=== PATIENT | female | born 1955 | race Caucasian/White ===

== ENCOUNTER → 2016-08-09 | Outpatient (CLI) | payer BC ==
--- NOTE | 2016-08-10 09:35 | MM ---
Reason for exam: screening (asymptomatic). Last mammogram was performed 1 year ago. History: Patient is postmenopausal. Family history of breast cancer in maternal grandmother at age 50. Benign left mammotome panel of the left breast, July 11, 2012. Benign ultrasound-guided cyst aspiration, February 19, 1999. Stereotactic core biopsy, February 19, 1999. Benign stereotactic core biopsy of the right breast, June 05, 1998. Cyst aspiration of the right breast. Core biopsy of the right breast. Took hormonal contraceptives for 2 years. Taking estrogen for 1 year beginning at age 54. Taking progesterone for 1 year beginning at age 54. Physical Findings: A clinical breast exam by your physician is recommended on an annual basis and results should be correlated with mammographic findings. MG Screening Mammo w CAD Bilateral CC and MLO view(s) were taken. Prior study comparison: July 29, 2015, bilateral MG screening mammo w CAD. July 23, 2014, bilateral MG diagnostic mammo w CAD OLIVIA. July 18, 2013, CAD bilateral diagnostic mammogram. The breast tissue is heterogeneously dense. This may lower the sensitivity of mammography. Finding: There are typically benign round, regional, grouped/clustered calcifications in both breasts. Previous mammotome biopsy in the right and left breast. There is a chronic nodularity in the right breast. There is no discrete abnormality. Increase in number of calcifications since July 29, 2015, July 23, 2014, and July 18, 2013. ASSESSMENT: Benign, BI-RAD 2 RECOMMENDATION: Routine screening mammogram of both breasts in 1 year.
== END | disposition home or self-care (01) ==
LOC: RADMAMWWP 07:34
PROVIDERS: ATTEND Surgery
DX: Z12.31 Encounter for screening mammogram for malignant neoplasm of breast (principal)

== ENCOUNTER → 2016-09-13 | Outpatient (CLI) | payer BC ==
--- NOTE | 2016-09-13 07:57 | US ---
EXAMINATION TYPE: US abdomen complete DATE OF EXAM: 09/13/2016 7:19 AM COMPARISON: NONE CLINICAL HISTORY: R14.0 Abdominal distention,R10.84 Abd Pain. Family h/o ovarian CA, mother EXAM MEASUREMENTS: Liver Length: 16.5 cm Gallbladder Wall: 0.2 cm CBD: 0.5 cm Spleen: 8.6 cm Right Kidney: 9.3 x 4.0 x 4.3 cm Left Kidney: 9.1 x 4.8 x 5.1 cm Pancreas: limited views appear wnl Liver: wnl Gallbladder: wnl Evidence for sonographic Arevalo's sign: no CBD: wnl Spleen: wnl Right Kidney: wnl Left Kidney: wnl Upper IVC: wnl Abd Aorta: wnl The liver is homogenous. The intrahepatic portion of the IVC and proximal abdominal aorta are within normal limits. There is no evidence of cholelithiasis. Common bile duct is unremarkable. The visu alized portions of the pancreas are homogenous. The spleen is unremarkable. Kidneys are symmetric a nd free of hydronephrosis. No renal lesions are seen. IMPRESSION: No significant abnormality.
--- NOTE | 2016-09-13 08:00 | US ---
EXAMINATION TYPE: US transvaginal DATE OF EXAM: 09/13/2016 7:30 AM COMPARISON: NONE CLINICAL HISTORY: R14.0 Abdominal distention,R10.2 Pelvic pain. mother had ovarian CA TECHNIQUE: TV Date of LMP: 15+ years ago EXAM MEASUREMENTS: Uterus: 6.9 x 3.1 x 2.2 cm Endometrial Stripe: 0.2 cm Right Ovary: 1.5 x 1.1 x 1.2 cm Left Ovary: 1.4 x 1.4 x 1.3 cm 1. Uterus: Anteverted wnl 2. Endometrium: wnl 3. Right Ovary: atrophic, wnl 4. Left Ovary: atrophic, wnl 5. Bilateral Adnexa: wnl 6. Posterior cul-de-sac: wnl IMPRESSION: No distinct abnormality appreciated.
== END | disposition home or self-care (01) ==
LOC: RADUSWWP 06:50
PROVIDERS: ATTEND Family Medicine
DX: R10.2 Pelvic and perineal pain (principal); R10.84 Generalized abdominal pain; R14.0 Abdominal distension (gaseous); Z80.41 Family history of malignant neoplasm of ovary
CPT/HCPCS: 76700; 76830

== ENCOUNTER → 2017-09-19 | Outpatient (CLI) | payer BC ==
--- NOTE | 2017-09-20 09:06 | MM ---
Reason for exam: screening (asymptomatic). Last mammogram was performed 1 year and 1 month ago. History: Patient is postmenopausal, has history of colon cancer at age 60, and history of other cancer. Family history of breast cancer in maternal grandmother at age 50. Benign left mammotome panel of the left breast, July 11, 2012. Benign ultrasound-guided cyst aspiration, February 19, 1999. Stereotactic core biopsy, February 19, 1999. Benign stereotactic core biopsy of the right breast, June 05, 1998. Cyst aspiration of the right breast. Core biopsy of the right breast. Took hormonal contraceptives for 2 years. Took estrogen for 1 year beginning at age 54. Took progesterone for 1 year beginning at age 54. Physical Findings: A clinical breast exam by your physician is recommended on an annual basis and results should be correlated with mammographic findings. MG 3D Screening Mammo W/Cad Bilateral CC and MLO view(s) were taken. Prior study comparison: August 09, 2016, bilateral MG screening mammo w CAD. July 29, 2015, bilateral MG screening mammo w CAD. The breast tissue is heterogeneously dense. This may lower the sensitivity of mammography. Small spiculated nodule upper outer right breast 9.5cm from nipple. ASSESSMENT: Incomplete: need additional imaging evaluation, BI-RAD 0 RECOMMENDATION: Special view mammogram and ultrasound of the right breast. [facility] will attempt to contact patient to return for supplemental views and ultrasound.
== END | disposition home or self-care (01) ==
LOC: RADMAMWWP 07:04
PROVIDERS: ATTEND Family Medicine
DX: Z12.31 Encounter for screening mammogram for malignant neoplasm of breast (principal)
CPT/HCPCS: 77063; 77067

== ENCOUNTER → 2017-09-29 | Outpatient (CLI) | payer BC ==
--- NOTE | 2017-09-29 12:03 | MM ---
Reason for exam: additional evaluation requested from abnormal screening. Last mammogram was performed less than 1 month ago. History: Patient is postmenopausal, has history of colon cancer at age 60, and history of other cancer. Family history of breast cancer in maternal grandmother at age 50. Benign left mammotome panel of the left breast, July 11, 2012. Benign ultrasound-guided cyst aspiration, February 19, 1999. Stereotactic core biopsy, February 19, 1999. Benign stereotactic core biopsy of the right breast, June 05, 1998. Cyst aspiration of the right breast. Core biopsy of the right breast. Took hormonal contraceptives for 2 years. Took estrogen for 1 year beginning at age 54. Took progesterone for 1 year beginning at age 54. Physical Findings: Nurse did not find any significant physical abnormalities on exam. MG 3D Work Up W/Cad RT CC and MLO view(s) were taken of the right breast. Prior study comparison: September 19, 2017, bilateral MG 3d screening mammo w/cad. August 09, 2016, bilateral MG screening mammo w CAD. Finding: There is a 12 mm spiculated mass in the upper outer quadrant, posterior position of the right breast persists on additional views. These results were verbally communicated with the patient and result sheet given to the patient on 09/29/17. ASSESSMENT: Incomplete: need additional imaging evaluation, BI-RAD 0 RECOMMENDATION: Ultrasound of the right breast.
--- NOTE | 2017-09-29 12:06 | USB ---
Reason for exam: additional evaluation requested from abnormal screening. History: Patient is postmenopausal, has history of colon cancer at age 60, and history of other cancer. Family history of breast cancer in maternal grandmother at age 50. Benign left mammotome panel of the left breast, July 11, 2012. Benign ultrasound-guided cyst aspiration, February 19, 1999. Stereotactic core biopsy, February 19, 1999. Benign stereotactic core biopsy of the right breast, June 05, 1998. Cyst aspiration of the right breast. Core biopsy of the right breast. Took hormonal contraceptives for 2 years. Took estrogen for 1 year beginning at age 54. Took progesterone for 1 year beginning at age 54. US Breast Workup Limited RT Right limited breast ultrasound including focal area of concern, retroareolar and axilla demonstrates a 0.4 x 0.2 x 0.4cm lesion too small to characterize at 9 o'clock and a 0.6 x 0.5 x 0.4cm irregular, solid, hypoechoic lesion at the axilla tail, suspicious, believed to correspond to mammographic abnormality. These results were verbally communicated with the patient and result sheet given to the patient on 09/29/17. ASSESSMENT: Highly suggestive of malignancy, BI-RAD 5 RECOMMENDATION: Ultrasound core biopsy of the right breast. Called Dr. Guerin with mammographic findings and has scheduled an appointment for the patient for 10/07/17 at 10:[address] Calderón. Biopsy scheduled for 10/04/17 at 8:00. PRELIMINARY REPORT CALLED AND FAXED TO DR. CALDERÓN ON 09/29/17.
== END | disposition home or self-care (01) ==
LOC: RADMAMWWP 09:27
PROVIDERS: ATTEND Family Medicine
DX: R92.8 Other abnormal and inconclusive findings on diagnostic imaging of breast (principal)
CPT/HCPCS: 77061; 77065

== ENCOUNTER → 2017-10-04 | Day surgery (SDC) | payer BC ==
[2017-10-04 09:46] VITALS: RESP 16; BMI 53.6
[2017-10-04 12:22] VITALS: BP 144/77; PULSE 64; TEMP 98
--- NOTE | 2017-10-04 13:02 | USB ---
EXAMINATION TYPE: US biopsy breast VAD RT DATE OF EXAM: 10/04/2017 CLINICAL HISTORY: R92.8 ABN Mammogram. TECHNIQUE: Ultrasound guided core biopsy of right breast. COMPARISON: NONE FINDINGS: The procedure of ultrasound guided core biopsy was explained to the patient. Benefits, alt ernatives, and risks were discussed. An informed consent was then obtained. The patient was placed in supine positioning for imaging and for the procedure. The overlying skin w as prepped and draped in usual sterile fashion. Lidocaine buffered with bicarbonate was used as anes thetic into the skin and subcutaneous tissue up to area of concern in the right breast. A lucía was m carolynn with surgical scalpel. Under ultrasound guidance, a 12-gauge vacuum assisted biopsy gun device was used to obtain 5 core jose ples. Following this, a biopsy clip was left in lesion. The patient tolerated the procedure well without any immediate complication. Patient did complain of some pinching sensation during the last 2 core samples. The procedure was terminated at that point. The patient was kept in the radiology department for short stay after the procedure and then discharg ed home in stable condition. IMPRESSION: 1. Successful ultrasound-guided core biopsy right breast lesion. Recommendations: 1. Recommendations are pending pathology results.
--- NOTE | 2017-10-04 13:30 | MM ---
Reason for exam: additional evaluation requested from abnormal screening. Last mammogram was performed less than 1 month ago. History: Patient is postmenopausal, has history of colon cancer at age 60, and history of other cancer. Family history of breast cancer in maternal grandmother at age 50. Benign left mammotome panel of the left breast, July 11, 2012. Benign ultrasound-guided cyst aspiration, February 19, 1999. Stereotactic core biopsy, February 19, 1999. Benign stereotactic core biopsy of the right breast, June 05, 1998. Cyst aspiration of the right breast. Core biopsy of the right breast. Took hormonal contraceptives for 2 years. Took estrogen for 1 year beginning at age 54. Took progesterone for 1 year beginning at age 54. MG Diagnostic Mammo RT Wo CAD CC and MLO view(s) were taken of the right breast. Prior study comparison: September 29, 2017, right breast MG 3d work up w/cad RT. September 19, 2017, bilateral MG 3d screening mammo w/cad. ASSESSMENT: Post procedure mammogram for marker placement RECOMMENDATION: Ultrasound of the right breast in 6 months. PENDING PATHOLOGY RESULTS.
== END | disposition home or self-care (01) ==
LOC: RADUSWWP 09:05
PROVIDERS: ATTEND Surgery
DX: C50.911 Malignant neoplasm of unspecified site of right female breast (principal); Z85.038 Personal history of other malignant neoplasm of large intestine; Z80.3 Family history of malignant neoplasm of breast
CPT/HCPCS: 77065; 19083; A4648; J2001; 88305; 88342

== ENCOUNTER → 2017-10-07 | Outpatient (CLI) | payer BC ==
[2017-10-07 10:02] VITALS: BP 147/88; PULSE 85; TEMP 98; BMI 24.1
--- NOTE | 2017-10-07 11:54 | P.GSHP ---
History of Present Illness H&P Date: 10/07/17 Lori is a 61-year-old white female who on a routine screening mammogram was noted to have an area of concern in the right breast. She underwent an ultrasound of the area which was of concern as well and an ultrasound-guided core biopsy. The pathology revealed an invasive ductal carcinoma. The size is less than 1 cm. ER/FL and HER-2/liv status are pending. The patient did not feel anything of concern in either breast nor did she have any nipple discharge or changes of concern. The patient had undergone prior core biopsies on both sides all of which were benign in the past. Of significance is the fact that approximately one year ago she underwent a right colon resection at [facility]. She has done well. family history: 1. maternal grandmother breast 2. patient colon 3. mother ovarian at 62 menarche: 12 : 2, breast fed both, first live 27 menopause: ablation, 49 BCP: 5 years hormones: 3 years past surgical history: 1. disc replaced in her neck 2. colon resection 3. core biopsy of breasts past medical history: none ROS: HEENT: none lung: none heart:none GI: colon cancer : oblation muscuskeletal: mild arthritis nuerologic: none skin: none - Constitutional Constitutional: Denies chills, Denies fever - EENT Eyes: denies blurred vision, denies pain Ears: deny: decreased hearing, ear discharge, earache Ears, nose, mouth and throat: Denies headache, Denies sore throat - Breasts Breasts: bilateral: as per HPI - Cardiovascular Cardiovascular: Denies chest pain, Denies shortness of breath - Gastrointestinal Comment: colon cancer s/p resection - Musculoskeletal Musculoskeletal: Denies myalgias - Integumentary Integumentary: Reports as per HPI - Neurological Neurological: Reports as per HPI, Denies numbness, Denies weakness - Psychiatric Psychiatric: Denies anxiety, Denies depression - Endocrine Endocrine: Denies fatigue, Denies weight change - Hematologic/Lymphatic Comment: low dose aspirin in am - Allergic/Immunologic Allergic/Immunologic: Reports as per HPI Past Medical History Past Medical History: Cancer Additional Past Medical History / Comment(s): colon cancer 2017. NECK SURGERY: 3 DISCS REPLACED MAR 2016 History of Any Multi-Drug Resistant Organisms: None Reported Past Surgical History: Section, Orthopedic Surgery Additional Past Surgical History / Comment(s): SECTION x2. NECK SURGERY: 3 DISCS REPLACED MAR 2016 Past Anesthesia/Blood Transfusion Reactions: No Reported Reaction Smoking Status: Never smoker Past Alcohol Use History: Occasional Past Drug Use History: None Reported - Past Family History Mother Family Medical History: Cancer Additional Family Medical History / Comment(s): OVARIAN Father Additional Family Medical History / Comment(s): PARKINSONS Medications and Allergies Home Medications Medication Instructions Recorded Confirmed Type Aspirin [Adult Low Dose Aspirin EC] 81 mg PO QAM 10/03/17 10/07/17 History Calcium Carbonate [Calcium] 600 mg PO QAM 10/03/17 10/07/17 History Multivitamins, Thera [Multivitamin 1 tab PO QAM 10/03/17 10/07/17 History (formulary)] Allergies Allergy/AdvReac Type Severity Reaction Status Date / Time No Known Allergies Allergy Verified 10/04/17 09:40 Surgical - Exam Vital Signs Temp Pulse BP 98.0 F 85 147/88 10/07/17 09:58 10/07/17 09:58 10/07/17 09:58 - General well developed, well nourished, no distress - Eyes normal ocular movement - ENT no hearing loss, no congestion - Neck no masses, trachea midline - Respiratory normal respiratory effort, clear to auscultation - Cardiovascular Rhythm: regular Heart Sounds: normal: S1, S2 - Abdomen Abdomen: soft, non tender, no guarding, no rigid, no rebound - Neurologic no disoriented, no combative - Musculoskeletal normal gait, normal posture - Psychiatric oriented to time, oriented to person, oriented to place, speech is normal, memory intact Breast examination: Right breast: Small puncture site lateral aspect of the right breast with core biopsy was obtained of the positional exam no dominant masses or nodules of concern, mild ecchymosis at puncture site Left breast: Multiple positional exam no dominant masses or nodules of concern Bilateral axilla: No adenopathy of concern Results x rays reviewed Assessment and Plan Assessment: Impression/plan: 1. Right breast cancer 2. History of colon cancer Plan: I have had a long discussion with the patient regarding surgical options with respect to the right breast cancer. We have discussed lumpectomy sentinel node biopsy and mastectomy plus or minus reconstruction. At this time after discussion I would recommend a lumpectomy with sentinel node biopsy possible axillary node dissection. We discussed radiation treatment including Jesika procedure versus breast radiation. The patient is seen a medical oncologist at [place] regarding her colon cancer and wishes to follow of there prior to making any decision for operative intervention here. At this time she is agreed to follow up in 2 weeks to discuss her treatment decision. Cc: Dr. Guerin
== END | disposition home or self-care (01) ==
LOC: WWCWWP 09:54
PROVIDERS: ATTEND Surgery
DX: Z53.9 Procedure and treatment not carried out, unspecified reason (principal)

== ENCOUNTER → 2018-01-31 | Outpatient (CLI) | payer BC ==
--- NOTE | 2018-01-31 15:13 | BD ---
EXAMINATION TYPE: Axial Bone Density DATE OF EXAM: 01/31/2018 COMPARISON: NONE CLINICAL HISTORY: RT BREAST CANCER Height: 5'2 Weight: 135 FRAX RISK QUESTIONS: Secondary Osteoporosis: RISK FACTORS HISTORY OF: Family History of Osteoporosis: y Postmenopausal woman: y MEDICATIONS: Additional Medications: Additional History: stage 1 breast cancer 2018, radiation EXAM MEASUREMENTS: Bone mineral densitometry was performed using the [employer] System. Bone mineral density as measured about the Lumbar spine is: ----- L1-L4(G/cm2): 1.186 T Score Values are as follows: ----- L2: 1.6 ----- L3: 0.6 ----- L4: -0.4 ----- L1-L4: 0.1 Bone mineral density about the R hip (g/cm2): 1.006 Bone mineral density about the L hip (g/cm2): 0.956 T Score values are as follows: -----R Neck: -0.2 -----L Neck: -0.6 -----R Total: 0.2 -----L Total: 0.1 IMPRESSION: Normal (Values between +1 and -1 indicate normal bone mass). Consider repeating this study in 5 year s or sooner if there is some new clinical indication. NOTE: T-SCORE=SD OF THE YOUNG ADULT MEAN.
== END | disposition home or self-care (01) ==
LOC: RADBDWWP 09:04
PROVIDERS: ATTEND Internal Medicine Hematology & Oncology
DX: C50.911 Malignant neoplasm of unspecified site of right female breast (principal)
CPT/HCPCS: 77080

== ENCOUNTER → 2018-09-20 | Outpatient (CLI) | payer BC ==
--- NOTE | 2018-09-20 09:25 | MM ---
Reason for exam: additional evaluation requested from prior study. Last mammogram was performed 1 year ago. History: Patient is postmenopausal, has history of breast cancer at age 61, has history of colon cancer at age 60, and history of other cancer. Family history of breast cancer in maternal grandmother at age 50. Malignant US biopsy breast VAD RT of the right breast, October 04, 2017. Benign left mammotome panel of the left breast, July 11, 2012. Benign ultrasound-guided cyst aspiration, February 19, 1999. Stereotactic core biopsy, February 19, 1999. Benign stereotactic core biopsy of the right breast, June 05, 1998. Cyst aspiration of the right breast. Core biopsy of the right breast. Took hormonal contraceptives for 2 years. Took estrogen for 1 year beginning at age 54. Took progesterone for 1 year beginning at age 54. Physical Findings: Nurse did not find any significant physical abnormalities on exam. MG 3D Diag Mammo W/Cad OLIVIA Bilateral CC and MLO view(s) were taken. Prior study comparison: October 04, 2017, right breast MG diagnostic mammo RT wo CAD. September 29, 2017, right breast MG 3d work up w/cad RT. The breast tissue is heterogeneously dense. This may lower the sensitivity of mammography. There is chronic nodularity in the right breast. Biozorb device posterior right breast. Regional calcifications on the left are unchanged. New post therapy and post surgical changes on the right. 6 month follow up to assess post therapy changes. These results were verbally communicated with the patient and result sheet given to the patient on 09/20/18. ASSESSMENT: Probably benign, BI-RAD 3 RECOMMENDATION: Follow-up diagnostic mammogram of the right breast in 6 months.
== END | disposition home or self-care (01) ==
LOC: RADMAMWWP 08:06
PROVIDERS: ATTEND Surgery
DX: C50.411 Malignant neoplasm of upper-outer quadrant of right female breast (principal)
CPT/HCPCS: 77062; 77066

== ENCOUNTER → 2019-03-26 | Outpatient (CLI) | payer BC ==
--- NOTE | 2019-03-26 10:17 | MM ---
Reason for exam: follow-up at short interval from prior study. Last mammogram was performed 6 months ago. History: Patient is postmenopausal, has history of breast cancer at age 61, has history of colon cancer at age 60, and history of other cancer. Family history of breast cancer in maternal grandmother at age 50. Malignant US biopsy breast VAD RT of the right breast, October 04, 2017. Benign left mammotome panel of the left breast, July 11, 2012. Benign ultrasound-guided cyst aspiration, February 19, 1999. Stereotactic core biopsy, February 19, 1999. Benign stereotactic core biopsy of the right breast, June 05, 1998. Cyst aspiration of the right breast. Core biopsy of the right breast. Took hormonal contraceptives for 2 years. Took estrogen for 1 year beginning at age 54. Took progesterone for 1 year beginning at age 54. Taking antineoplastic beginning at age 62. Physical Findings: Nurse did not find any significant physical abnormalities on exam. MG 3D Diag Mammo W/Cad RT CC and MLO view(s) were taken of the right breast. Prior study comparison: September 20, 2018, bilateral MG 3d diag mammo w/cad OLIVIA. October 04, 2017, right breast MG diagnostic mammo RT wo CAD. The breast tissue is heterogeneously dense. This may lower the sensitivity of mammography. Right lateral asymmetry deep to the skin defect is likely post surgical, precautionary ultrasound recommended. These results were verbally communicated with the patient and result sheet given to the patient on 03/26/19. ASSESSMENT: Incomplete: need additional imaging evaluation, BI-RAD 0 RECOMMENDATION: Ultrasound of the right breast. (lateral)
--- NOTE | 2019-03-26 10:18 | USB ---
Reason for exam: additional evaluation requested from abnormal screening. History: Patient is postmenopausal, has history of breast cancer at age 61, has history of colon cancer at age 60, and history of other cancer. Family history of breast cancer in maternal grandmother at age 50. Malignant US biopsy breast VAD RT of the right breast, October 04, 2017. Benign left mammotome panel of the left breast, July 11, 2012. Benign ultrasound-guided cyst aspiration, February 19, 1999. Stereotactic core biopsy, February 19, 1999. Benign stereotactic core biopsy of the right breast, June 05, 1998. Cyst aspiration of the right breast. Core biopsy of the right breast. Took hormonal contraceptives for 2 years. Took estrogen for 1 year beginning at age 54. Took progesterone for 1 year beginning at age 54. Taking antineoplastic beginning at age 62. US Breast Limited RT Right limited breast ultrasound including focal area of concern, retroareolar and axilla demonstrates a 0.5 x 0.6 x 0.3cm ovoid, solid, hypoechoic, vascular lymph node at 9 o'clock and a 0.4 x 0.8 x 0.3cm cystic lesion at 9 o'clock. These results were verbally communicated with the patient and result sheet given to the patient on 03/26/19. ASSESSMENT: Benign, BI-RAD 2 RECOMMENDATION: Follow-up diagnostic mammogram of both breasts in 6 months. Back on schedule for August 2019.
== END | disposition home or self-care (01) ==
LOC: RADMAMWWP 08:07
PROVIDERS: ATTEND Radiology Radiation Oncology
DX: C50.411 Malignant neoplasm of upper-outer quadrant of right female breast (principal); R92.8 Other abnormal and inconclusive findings on diagnostic imaging of breast; Z17.0 Estrogen receptor positive status [ER+]; Z98.890 Other specified postprocedural states; Z92.3 Personal history of irradiation
CPT/HCPCS: 77061; 77065

== ENCOUNTER → 2019-10-23 | Outpatient (CLI) | payer BC ==
--- NOTE | 2019-10-23 09:46 | MM ---
Reason for exam: follow-up at short interval from prior study. Last mammogram was performed 7 months ago. History: Patient is postmenopausal, has history of breast cancer at age 61, has history of colon cancer at age 60, and history of other cancer. Family history of breast cancer in maternal grandmother at age 50. Malignant US biopsy breast VAD RT of the right breast, October 04, 2017. Benign left mammotome panel of the left breast, July 11, 2012. Benign ultrasound-guided cyst aspiration, February 19, 1999. Stereotactic core biopsy, February 19, 1999. Benign stereotactic core biopsy of the right breast, June 05, 1998. Cyst aspiration of the right breast. Core biopsy of the right breast. Lumpectomy. Radiation therapy. Took hormonal contraceptives for 2 years. Took estrogen for 1 year beginning at age 54. Took progesterone for 1 year beginning at age 54. Taking antineoplastic for 2 years beginning at age 61. Physical Findings: Nurse did not find any significant physical abnormalities on exam. MG 3D Diag Mammo W/Cad OLIVIA Bilateral CC and MLO view(s) were taken. Prior study comparison: March 26, 2019, right breast MG 3d diag mammo w/cad RT. September 20, 2018, bilateral MG 3d diag mammo w/cad OLIVIA. The breast tissue is heterogeneously dense. This may lower the sensitivity of mammography. Benign appearing bilateral calcifications. No suspicious abnormality. Post therapy change on the right. Stable right intramammary lymph nodes. No significant new findings when compared with previous films. These results were verbally communicated with the patient and result sheet given to the patient on 10/23/19. ASSESSMENT: Benign, BI-RAD 2 RECOMMENDATION: Follow-up diagnostic mammogram of both breasts in 1 year.
== END | disposition home or self-care (01) ==
LOC: RADMAMWWP 08:42
PROVIDERS: ATTEND Radiology Radiation Oncology
DX: C50.411 Malignant neoplasm of upper-outer quadrant of right female breast (principal); Z92.3 Personal history of irradiation; Z98.890 Other specified postprocedural states; Z17.0 Estrogen receptor positive status [ER+]
CPT/HCPCS: 77062; 77066

== ENCOUNTER → 2020-01-02 | Outpatient (CLI) | payer BC ==
[2020-01-02 18:11] LABS: African American GFR (CKD) 105.4 (60.0-200.0); Non-African American GFR(CKD) 90.9 (60.0-200.0)
== END | disposition home or self-care (01) ==
LOC: LABWHC1 07:57
PROVIDERS: ATTEND Internal Medicine Hematology & Oncology
DX: C50.911 Malignant neoplasm of unspecified site of right female breast (principal)
CPT/HCPCS: 36415; 82565; 84520

== ENCOUNTER → 2020-07-17 | Outpatient (CLI) | payer BC ==
[2020-07-17 21:28] LABS: Basophils # (A) 0.05 X 10*3/uL (0.00-0.10); Basophils % (A) 0.6 %; Eosinophils # (A) 0.13 X 10*3/uL (0.04-0.35); Eosinophils % (A) 1.7 %; HCT 39.3 % (37.2-46.3); Lymphocytes # (A) 3.15 X 10*3/uL (0.90-5.00); Lymphocytes % (A) 40.8 %; MCH 34.2 pg (27.0-32.0); MCHC 33.1 g/dL (32.0-37.0); MCV 103.4 fL (80.0-97.0); Mean Platelet Volume 10.8 fL (9.5-12.2); Monocytes # (A) 0.61 X 10*3/uL (0.20-1.00); Monocytes % (A) 7.9 %; Neutrophils # (A) 3.76 X 10*3/uL (1.80-7.70); Neutrophils % (A) 48.7 %; Platelet Count 299 X 10*3/uL (140-440); RDW 13.9 % (11.5-14.5); WBC 7.72 X 10*3/uL (4.50-10.00)
[2020-07-18 08:58] LABS: African American GFR (CKD) 89.7 (60.0-200.0); Albumin 4.5 g/dL (3.80-4.90); Albumin/Globulin Ratio 1.96 (1.60-3.17); Anion Gap 12.5 mmol/L (4.00-12.00); BUN/Creat Ratio 23.75 Ratio (12.00-20.00); Carbon Dioxide 24.5 mmol/L (21.6-31.8); Globulin 2.3 g/dL (1.6-3.3); Non-African American GFR(CKD) 77.4 (60.0-200.0); Potassium 4.1 mmol/L (3.5-5.5); Total Bilirubin 0.4 mg/dL (0.3-1.2); Total Protein 6.8 g/dL (6.2-8.2)
== END | disposition home or self-care (01) ==
LOC: LABWHC1 11:49 → EDSTATUS 11:52
PROVIDERS: ATTEND Internal Medicine Hematology & Oncology
DX: C50.911 Malignant neoplasm of unspecified site of right female breast (principal)
CPT/HCPCS: 36415; 80053; 82378; 85025

== ENCOUNTER → 2020-10-27 | Outpatient (CLI) | payer BC ==
[2020-10-27 14:55] LABS: Basophils # (A) 0.05 X 10*3/uL (0.00-0.10); Basophils % (A) 0.7 %; Eosinophils # (A) 0.25 X 10*3/uL (0.04-0.35); Eosinophils % (A) 3.7 %; HCT 38.5 % (37.2-46.3); HGB 12.8 g/dL (12.0-15.0); Lymphocytes # (A) 2.59 X 10*3/uL (0.90-5.00); Lymphocytes % (A) 38.7 %; MCH 34.2 pg (27.0-32.0); MCHC 33.2 g/dL (32.0-37.0); MCV 102.9 fL (80.0-97.0); Mean Platelet Volume 10.9 fL (9.5-12.2); Monocytes # (A) 0.63 X 10*3/uL (0.20-1.00); Monocytes % (A) 9.4 %; Neutrophils # (A) 3.16 X 10*3/uL (1.80-7.70); Neutrophils % (A) 47.2 %; Platelet Count 279 X 10*3/uL (140-440); RBC 3.74 X 10*6/uL (4.10-5.20); RDW 13.9 % (11.5-14.5)
[2020-10-27 15:03] LABS: African American GFR (CKD) 105.4 (60.0-200.0); Albumin 4.3 g/dL (3.80-4.90); Albumin/Globulin Ratio 1.72 (1.60-3.17); Anion Gap 5.2 mmol/L (4.00-12.00); BUN/Creat Ratio 21.43 Ratio (12.00-20.00); Calcium 9.4 mg/dL (8.7-10.3); Carbon Dioxide 30.8 mmol/L (21.6-31.8); Globulin 2.5 g/dL (1.6-3.3); Non-African American GFR(CKD) 90.9 (60.0-200.0); Potassium 4.6 mmol/L (3.5-5.5); Total Bilirubin 0.6 mg/dL (0.2-1.2); Total Protein 6.8 g/dL (6.2-8.2)
== END | disposition home or self-care (01) ==
LOC: LABWHC1 09:27
PROVIDERS: ATTEND Internal Medicine Hematology & Oncology
DX: C50.911 Malignant neoplasm of unspecified site of right female breast (principal)
CPT/HCPCS: 36415; 80053; 82378; 85025

== ENCOUNTER → 2020-11-10 | Outpatient (CLI) | payer BC ==
--- NOTE | 2020-11-10 11:23 | MM ---
Reason for exam: additional evaluation requested from prior study. Last mammogram was performed 1 year and 1 month ago. History: Patient is postmenopausal, has history of breast cancer at age 61, has history of colon cancer at age 60, and history of other cancer. Family history of breast cancer in maternal grandmother at age 50. Malignant US biopsy breast VAD RT of the right breast, October 04, 2017. Benign left mammotome panel of the left breast, July 11, 2012. Benign ultrasound-guided cyst aspiration, February 19, 1999. Stereotactic core biopsy, February 19, 1999. Benign stereotactic core biopsy of the right breast, June 05, 1998. Cyst aspiration of the right breast. Core biopsy of the right breast. Lumpectomy. Radiation therapy. Took hormonal contraceptives for 2 years. Took estrogen for 1 year beginning at age 54. Took progesterone for 1 year beginning at age 54. Taking antineoplastic for 2 years beginning at age 61. Physical Findings: Nurse did not find any significant physical abnormalities on exam. MG 3D Diag Mammo W/Cad OLIVIA Bilateral CC and MLO view(s) were taken. Prior study comparison: October 23, 2019, bilateral MG 3d diag mammo w/cad OLIVIA. March 26, 2019, right breast MG 3d diag mammo w/cad RT. August 09, 2016, bilateral MG screening mammo w CAD. The breast tissue is heterogeneously dense. This may lower the sensitivity of mammography. Right lumpectomy and radiation changes stable. No significant new findings when compared with previous films. These results were verbally communicated with the patient and result sheet given to the patient on 11/10/20. ASSESSMENT: Benign, BI-RAD 2 RECOMMENDATION: Follow-up diagnostic mammogram of both breasts in 1 year.
== END | disposition home or self-care (01) ==
LOC: RADMAMWWP 09:39
PROVIDERS: ATTEND Radiology Radiation Oncology
DX: C50.111 Malignant neoplasm of central portion of right female breast (principal); R92.2 Inconclusive mammogram; Z78.0 Asymptomatic menopausal state; Z80.3 Family history of malignant neoplasm of breast
CPT/HCPCS: 77062; 77066

== ENCOUNTER → 2021-11-12 | Outpatient (CLI) | payer BC ==
--- NOTE | 2021-11-12 11:29 | MM ---
Reason for Exam: Hx of breast cancer, conservation therapy. Last screening mammogram was performed 12 month(s) ago. Patient History: Menarche at age 12. First Full-Term at age 26. Postmenopausal. Patient has history of breast feeding. Colorectal cancer, age 60. Breast cancer, right, age 61. Patient tested for BRCA1 outcome was negative. Patient tested for BRCA2 outcome was negative. Estrogen, starting at age 54 for 1 year. Progesterone, starting at age 54 for 1 year. Patient used Hormonal Contraceptives for 2 years. Cyst Aspiration on the Right side. Core Biopsy on the Right side. Lumpectomy. 10/04/2017, Malignant Core Biopsy on the right side. 07/11/2012, Benign Core Biopsy on the left side. Benign Ultrasound-Guided Cyst Aspiration. 02/19/1999, Stereotactic Core Biopsy. 06/05/1998, Benign Stereotactic Core Biopsy on the right side. Radiation Therapy. Maternal grandmother had breast cancer, age 50. Prior Study Comparison: 06/26/2012 Bilateral Diagnostic Mammogram, [facility]. 01/18/2013 Left Diagnostic Mammogram, [facility]. 07/18/2013 Bilateral Diagnostic Mammogram, [facility]. 07/18/2013 Right Diagnostic Ultrasound, [facility]. 07/23/2014 Bilateral Diagnostic Mammogram, [facility]. 07/29/2015 Bilateral Screening Mammogram, [facility]. 08/09/2016 Bilateral Screening Mammogram, [facility]. 09/19/2017 Bilateral Screening Mammogram, [facility]. 09/29/2017 Right Diagnostic Mammogram, [facility]. 09/29/2017 Right Diagnostic Ultrasound, [facility]. 10/04/2017 Right Diagnostic Mammogram, [facility]. 09/20/2018 Bilateral Diagnostic Mammogram, [facility]. 03/26/2019 Right Diagnostic Mammogram, [facility]. 03/26/2019 Right Diagnostic Ultrasound, [facility]. 10/23/2019 Bilateral Diagnostic Mammogram, [facility]. 11/10/2020 Bilateral Diagnostic Mammogram, [facility]. Tissue Density: The breast tissue is heterogeneously dense. This may lower the sensitivity of mammography. Findings: Analyzed By CAD. Postoperative lumpectomy changes right breast remain stable. Microclip marker is also seen bilaterally. Chronic nodularity without a suspicious appearing mass. No suspicious appearing microcalcifications evident. Overall Assessment: Benign, BI-RAD 2 Management: Diagnostic Mammogram of both breasts in 1 year. A clinical breast exam by your physician is recommended on an annual basis and results should be correlated with mammographic findings. This exam should not preclude additional follow-up of suspicious palpable abnormalities. Results were given to the patient verbally at the time of exam. Electronically signed and approved by: Sd Feldman M.D. Radiologis
== END | disposition home or self-care (01) ==
LOC: RADMAMWWP 10:48
PROVIDERS: ATTEND Radiology Radiation Oncology
DX: R92.8 Other abnormal and inconclusive findings on diagnostic imaging of breast (principal); Z78.0 Asymptomatic menopausal state
CPT/HCPCS: 77062; 77066

== ENCOUNTER → 2022-11-15 | Outpatient (CLI) | payer MEDICARE ==
--- NOTE | 2022-11-15 10:18 | MM ---
Reason for Exam: Hx of breast cancer, conservation therapy. Last mammogram was performed 1 year(s) and 1 month(s) ago. Patient History: Menarche at age 12. First Full-Term at age 26. Postmenopausal. Patient has history of breast feeding. Colorectal cancer, age 60. Breast cancer, right, age 61. Patient tested for BRCA1 outcome was negative. Patient tested for BRCA2 outcome was negative. Estrogen, starting at age 54 for 1 year. Progesterone, starting at age 54 for 1 year. Patient used Hormonal Contraceptives for 2 years. Cyst Aspiration on the Right side. Core Biopsy on the Right side. Lumpectomy. 10/04/2017, Malignant Core Biopsy on the right side. 07/11/2012, Benign Core Biopsy on the left side. Benign Ultrasound-Guided Cyst Aspiration. 02/19/1999, Stereotactic Core Biopsy. 06/05/1998, Benign Stereotactic Core Biopsy on the right side. Radiation Therapy. Maternal grandmother had breast cancer, age 50. Prior Study Comparison: 08/09/2016 Bilateral Screening Mammogram, [facility]. 09/19/2017 Bilateral Screening Mammogram, [facility]. 09/29/2017 Right Diagnostic Mammogram, [facility]. 09/29/2017 Right Diagnostic Ultrasound, [facility]. 10/04/2017 Right Diagnostic Mammogram, [facility]. 09/20/2018 Bilateral Diagnostic Mammogram, [facility]. 03/26/2019 Right Diagnostic Mammogram, [facility]. 03/26/2019 Right Diagnostic Ultrasound, [facility]. 10/23/2019 Bilateral Diagnostic Mammogram, [facility]. 11/10/2020 Bilateral Diagnostic Mammogram, [facility]. 11/12/2021 Bilateral MG 3D diag mammo w/cad OLIVIA, [facility]. Tissue Density: The breast tissue is heterogeneously dense. This may lower the sensitivity of mammography. Findings: Analyzed By CAD. Pattern appears stable. Postsurgical changes are in the posterior right breast. Core markers are within the left breast and right breast. There are grouped small round calcifications upper inner aspect right mid breast. These were present previously and appear stable. No suspicious groups of microcalcifications, spiculated or lobular masses, architectural distortion or other secondary signs of malignancy are mammographically apparent. Overall Assessment: Benign, BI-RAD 2 Management: Screening Mammogram of both breasts in 1 year. A negative mammogram report should not preclude additional follow up of suspicious palpable abnormalities. Patient should continue monthly self breast exam. A clinical breast exam by your physician is recommended on an annual basis and results should be correlated with mammographic findings. Electronically signed and approved by: Jose Barragan D.O. Radiologis
== END | disposition home or self-care (01) ==
LOC: RADMAMWWP 08:44
PROVIDERS: ATTEND Radiology Radiation Oncology
DX: C50.411 Malignant neoplasm of upper-outer quadrant of right female breast (principal); Z78.0 Asymptomatic menopausal state; Z80.3 Family history of malignant neoplasm of breast
CPT/HCPCS: 77066; G0279; 77062

== ENCOUNTER → 2023-11-24 | Outpatient (CLI) | payer MEDICARE ==
--- NOTE | 2023-11-27 16:29 | BD ---
EXAMINATION TYPE: Axial Bone Density DATE OF EXAM: 11/24/2023 CLINICAL HISTORY: 68 years old Female. ICD-10 CODE: Z78.0 ASYMPTOMATIC MENOPAUSAL STA Height: 60.5in Weight: 128lb FRAX RISK QUESTIONS: Secondary Osteoporosis: RISK FACTORS HISTORY OF: Surgery to Spine/Hip(right/left)/Wrist (right/left): cervical spine When: 2017 MEDICATIONS: EXAM MEASUREMENTS: Bone mineral densitometry was performed using the [employer]. Bone mineral density as measured about the Lumbar spine is: ----- L1-L4(G/cm2): 1.130 T Score Values are as follows: ----- L1: -1.9 ----- L2: 1.5 ----- L3: -0.7 ----- L4: -1.0 ----- L1-L4: -0.4 Z Score Values are as follows: ----- L1: 0.0 ----- L2: 3.4 ----- L3: 1.2 ----- L4: 0.9 ----- L1-L4: 1.5 Bone mineral density has: Increased 1.1% since study of: 02-05-20 Bone mineral density about the R hip (g/cm2): 0.907 Bone mineral density about the L hip (g/cm2): 0.899 T Score values are as follows: -----R Neck: -1.2 -----L Neck: -1.6 -----R Total: -0.8 -----L Total: -0.9 Z Score values are as follows: -----R Neck: 0.5 -----L Neck: 0.2 -----R Total: 0.8 -----L Total: 0.7 Bone mineral density has: Decreased -6.9% since study of: 02-05-20 FRAX%s: The graph provided illustrates a 10% chance for a major osteoporotic fx and a 1.4% chance for the hips probability for fx in 10 years time. IMPRESSION: Osteopenia (T Score between -2.5 and -1). There is slightly increased risk of fracture and the patient may be considered for treatment. Re-Screen 2-5 years. NOTE: T-SCORE=SD OF THE YOUNG ADULT MEAN.
--- NOTE | 2023-11-29 17:02 | MM ---
Reason for Exam: Screening (asymptomatic). Last screening mammogram was performed 12 month(s) ago. Patient History: Menarche at age 12. First Full-Term at age 26. Postmenopausal. Patient has history of breast feeding. Colorectal cancer, age 60. Breast cancer, right, age 61. Patient tested for BRCA1 outcome was negative. Patient tested for BRCA2 outcome was negative. Estrogen, starting at age 54 for 1 year. Progesterone, starting at age 54 for 1 year. Patient used Hormonal Contraceptives for 2 years. Cyst Aspiration on the Right side. Core Biopsy on the Right side. Lumpectomy. 10/04/2017, Malignant Core Biopsy on the right side. 07/11/2012, Benign Core Biopsy on the left side. Benign Ultrasound-Guided Cyst Aspiration. 02/19/1999, Stereotactic Core Biopsy. 06/05/1998, Benign Stereotactic Core Biopsy on the right side. 2018, Radiation Therapy on the right side. Radiation Therapy. Maternal grandmother had breast cancer, age 50. Prior Study Comparison: 11/10/2020 Bilateral Diagnostic Mammogram, [facility]. 11/12/2021 Bilateral MG 3D diag mammo w/cad OLIVIA, [facility]. 11/15/2022 Bilateral MG 3D diag mammo w/cad OLIVIA, [facility]. Tissue Density: There are scattered areas of fibroglandular density. Findings: Analyzed By CAD. The pattern is symmetrical. Prior surgical changes are in the posterior right breast No suspicious groups of microcalcifications, spiculated or lobular masses, architectural distortion or other secondary signs of malignancy are mammographically apparent. Overall Assessment: Benign, BI-RAD 2 Management: Screening Mammogram of both breasts in 1 year. A negative mammogram report should not preclude additional follow up of suspicious palpable abnormalities. Patient should continue monthly self breast exam. A clinical breast exam by your physician is recommended on an annual basis and results should be correlated with mammographic findings. Note on Abigail scores and lifetime risk: 1. A Abigail score greater than 3% is considered moderate risk. If this is the case, consider specialist referral to assess eligibility for a risk reducing agent. 2. If overall lifetime risk for the development of breast cancer is 20% or higher, the patient may qualify for future screening with alternating mammogram and breast MRI. Electronically signed and approved by: Jose Barragan D.O. Radiologis
== END | disposition home or self-care (01) ==
LOC: RADMAMWWP 10:32
PROVIDERS: ATTEND Family Medicine
DX: Z12.31 Encounter for screening mammogram for malignant neoplasm of breast (principal); Z13.820 Encounter for screening for osteoporosis; M85.89 Other specified disorders of bone density and structure, multiple sites; Z78.0 Asymptomatic menopausal state; Z80.3 Family history of malignant neoplasm of breast; Z85.3 Personal history of malignant neoplasm of breast
CPT/HCPCS: 77063; 77067; 77080

== ENCOUNTER → 2024-11-29 | Outpatient (CLI) | payer MEDICARE ==
--- NOTE | 2024-11-29 14:18 | MM ---
Reason for Exam: Screening (asymptomatic). Last screening mammogram was performed 12 month(s) ago. Patient History: Menarche at age 12. First Full-Term at age 26. Postmenopausal. Patient has history of breast feeding. Colorectal cancer, age 60. Breast cancer, right, age 61. Patient tested for BRCA1 outcome was negative. Patient tested for BRCA2 outcome was negative. Estrogen, starting at age 54 for 1 year. Progesterone, starting at age 54 for 1 year. Patient used Hormonal Contraceptives for 2 years. Cyst Aspiration on the Right side. Core Biopsy on the Right side. Lumpectomy. 10/04/2017, Malignant Core Biopsy on the right side. 07/11/2012, Benign Core Biopsy on the left side. Benign Ultrasound-Guided Cyst Aspiration. 02/19/1999, Stereotactic Core Biopsy. 06/05/1998, Benign Stereotactic Core Biopsy on the right side. 2018, Radiation Therapy on the right side. Radiation Therapy. Maternal grandmother had breast cancer, age 50. Prior Study Comparison: 11/12/2021 Bilateral MG 3D diag mammo w/cad OLIVIA, [facility]. 11/15/2022 Bilateral MG 3D diag mammo w/cad OLIVIA, [facility]. 11/24/2023 Bilateral MG 3D screening mammo w/cad, [facility]. Tissue Density: The breasts are heterogeneously dense, which may obscure small masses. Findings: Analyzed By CAD. There is no suspicious group of microcalcifications or new suspicious mass in either breast. Stable position of previous biopsy changes. Chronic nodularity bilateral breast stable. Benign calcifications. Overall Assessment: Benign, BI-RAD 2 Management: Screening Mammogram of both breasts in 1 year. . Patient should continue monthly self-breast exams. A clinical breast exam by your physician is recommended on an annual basis. This exam should not preclude additional follow-up of suspicious palpable abnormalities. Note on Abigail scores and lifetime risk: 1. A Abigail score greater than 3% is considered moderate risk. If this is the case, consider specialist referral to assess eligibility for a risk reducing agent. 2. If overall lifetime risk for the development of breast cancer is 20% or higher, the patient may qualify for future screening with alternating mammogram and breast MRI. [facility], , 11/29/2024 2:14 PM. Electronically signed and approved by: Felice Wilkerson M.D. Radiologis
== END | disposition home or self-care (01) ==
LOC: RADMAMWWP 13:44
PROVIDERS: ATTEND Family Medicine
DX: Z12.31 Encounter for screening mammogram for malignant neoplasm of breast (principal); R92.333 Mammographic heterogeneous density, bilateral breasts; Z78.0 Asymptomatic menopausal state; Z80.3 Family history of malignant neoplasm of breast; Z92.0 Personal history of contraception
CPT/HCPCS: 77063; 77067